=== PATIENT | male | born 1955 | race Caucasian/White ===

== ENCOUNTER 2021-11-21 14:24 | Emergency (ER) | payer MEDICARE, OTHER ==
[~2021-11-21] VITALS: Ht 177.8 cm; Wt 86.2 kg
[2021-11-21] MEDS ORDERED: ONDANSETRON HCL 4 MG ORAL DISINTEGRATING TAB PO STA (14:36)
[2021-11-21] MEDS ORDERED: HYDROCODONE/APAP 5MG-325MG TAB PO STA (14:36)
[2021-11-21] MEDS ORDERED: ONDANSETRON ODT4 MG PO (15:37)
[2021-11-21] MEDS ORDERED: HYDROCODON-ACE1 EA11 PO (15:37)
[2021-11-21] MEDS ORDERED: BACITRACIN ZINC 0.9GM TP ONE (16:03)
== END 2021-11-21 16:23 | disposition home or self-care (01) ==
LOC: FSED 14:32
DX: S42.001A Fracture of unspecified part of right clavicle, initial encounter for closed fracture (principal); V19.9XXA Pedal cyclist (driver) (passenger) injured in unspecified traffic accident, initial encounter; Y93.55 Activity, bike riding; Y92.488 Other paved roadways as the place of occurrence of the external cause; E78.5 Hyperlipidemia, unspecified
CPT/HCPCS: 29240; 73030; 99283; Q0162